=== PATIENT | female | born 1980 | race Caucasian/White ===

== ENCOUNTER → 2021-01-08 | Outpatient (REF) | LOC: M LABSMTC 12:54 | PROVIDERS: ATTEND Pediatrics | DX: Z20.822 Contact with and (suspected) exposure to COVID-19 (principal) ==

== ENCOUNTER 2021-01-26 11:33 | Emergency (ER) | payer OTHER ==
[~2021-01-26] VITALS: Ht 154.9 cm; Wt 82.5 kg
[2021-01-26 11:34] VITALS: BP 112/70
[2021-01-26] MEDS ORDERED: DUPI300I SC (11:46)
[2021-01-26] MEDS ORDERED: FLUORESCEIN OPHTH 1 MG STRIP OS ONE (13:05)
[2021-01-26] MEDS ORDERED: TETRACAINE 0.5% OPHTH SOLN 4ML OS ONE (13:05)
[2021-01-26] MEDS ORDERED: OCUF0.25 OS (14:21)
== END 2021-01-26 15:24 | disposition home or self-care (01) ==
LOC: M ED 11:33
DX: H10.32 Unspecified acute conjunctivitis, left eye (principal); J45.909 Unspecified asthma, uncomplicated; Z88.1 Allergy status to other antibiotic agents; Z88.2 Allergy status to sulfonamides